=== PATIENT | female | born 1960 | race Caucasian/White ===

== ENCOUNTER 2020-06-19 08:00 | Outpatient (RCR) | payer BC | END 2020-07-06 | LOC: OT 08:00 | PROVIDERS: ATTEND Specialist | DX: M77.8 Other enthesopathies, not elsewhere classified (principal); S46.002D Unspecified injury of muscle(s) and tendon(s) of the rotator cuff of left shoulder, subsequent encounter; M25.512 Pain in left shoulder; R53.1 Weakness ==